=== PATIENT | male | born 1955 | race Caucasian/White ===

== ENCOUNTER 2017-08-17 18:22 | Observation (INO) | payer OTHER ==
[2017-08-18 00:10] LABS: ADD MAN DIFF? NO
[2017-08-18 00:12] LABS: BASOPHIL # 0.1 10^3/ul (0.0-0.1); BASOPHILS % 0.5 % (0.0-2.0); EOSINOPHILS % 0.3 % (0.0-7.0); HEMATOCRIT 43.6 % (42.0-52.0); HEMOGLOBIN 14.9 g/dl (14.0-18.0); LYMPHOCYTES # 3.3 10^3/ul (0.8-2.9); LYMPHOCYTES % 33.3 % (15.0-51.0); MEAN CORPUSCULAR HGB CONC 34.2 g/dl (32.0-37.0); MEAN CORPUSCULAR VOLUME 90.6 fl (82.0-101.0); MEAN PLATELET VOLUME 9.3 fl (7.4-10.4); MONOCYTE # 0.7 10^3/ul (0.3-0.9); MONOCYTES % 7.2 % (0.0-11.0); NEUTROPHIL # 5.8 10^3/ul (1.6-7.5); NEUTROPHILS % 58.5 % (39.0-77.0); PLATELET COUNT 293 10^3/UL (140-415); RED BLOOD COUNT 4.81 10^6/ul (4.70-6.10)
[2017-08-18 00:12] LABS: WHITE BLOOD COUNT 9.9 10^3/ul (4.8-10.8)
[2017-08-18 00:33] LABS: ALANINE AMINOTRANSFERASE 52 IU/L (13-69); ALBUMIN 4.5 g/dl (3.3-4.9); ALBUMIN/GLOBULIN RATIO 1.15; ALKALINE PHOSPHATASE 97 IU/L (42-121); ANION GAP 15 (8-16); ASPARTATE AMINO TRANSFERASE 41 IU/L (15-46); BILIRUBIN,INDIRECT 0.3 mg/dl (0-1.1); BILIRUBIN,TOTAL 0.3 mg/dl (0.2-1.3); BLOOD UREA NITROGEN 10 mg/dl (7-20); CALCIUM 9.5 mg/dl (8.4-10.2); CARBON DIOXIDE 28 mmol/L (21-31); CHLORIDE 100 mmol/L (97-110); CREATININE 0.72 mg/dl (0.61-1.24); GLUCOSE 129 mg/dl (70-220); SODIUM 139 mmol/L (135-144); TOTAL PROTEIN 8.4 g/dl (6.1-8.1)
[2017-08-18 00:45] LABS: B-TYPE NATRIURETIC PEPTIDE 68 PG/ML (0-125); TROPONIN-I 0.012 ng/ml (0.00-0.12)
[2017-08-18] MEDS ORDERED: LORAZEPAM 2 MG INJ IV (03:30)
[2017-08-18] MEDS ORDERED: NA PHOSPHATE/BIPHOS 133 ML ENEMA PR (03:30)
[2017-08-18] MEDS ORDERED: ACETAMINOPHEN 325 MG TAB PO (03:30)
[2017-08-18] MEDS ORDERED: hydrALAzine 20 MG INJ IV (03:30)
[2017-08-18] MEDS ORDERED: DOCUSATE SODIUM 100 MG CAP PO (03:30)
[2017-08-18] MEDS ORDERED: NITROGLYCERIN (SL) 0.4 MG TAB SL (03:30)
[2017-08-18] MEDS ORDERED: NACL 0.9% 3 ML SYG IV (03:30)
[2017-08-18] MEDS ORDERED: ALBUTEROL/IPRATROPIUM (NEB) 3 ML AMP HHN (03:30)
[2017-08-18] MEDS ORDERED: HYDROCODONE/APAP (5/325) TAB PO (03:30)
[2017-08-18] MEDS ORDERED: MAGNESIUM HYDROXIDE 30ML CUP PO (03:30)
[2017-08-18] MEDS: SOD CHLORIDE 0.45% 1,000 ML IV ×3 (03:55→17:54)
[2017-08-18] MEDS: morphine 2 MG INJ IV (04:02)
[2017-08-18] MEDS: ONDANSETRON 4 MG INJ IV (04:02)
[2017-08-18 07:11] LABS: CREATINE KINASE 55 IU/L (23-200)
[2017-08-18 07:24] LABS: CK INDEX 1.5
[2017-08-18 07:31] LABS: TROPONIN-I < 0.012 ng/ml (0.00-0.12)
[2017-08-18 07:33] LABS: FREE T4 (FREE THYROXINE) 1.03 ng/dl (0.64-1.79)
[2017-08-18] MEDS: FAMOTIDINE 20 MG TAB PO ×2 (09:41→20:33)
[2017-08-18] MEDS: ASPIRIN (EC) 325 MG TAB PO (09:41)
[2017-08-18] MEDS: NEOMYC/POLYMYX/DEXAM 3.5GM OPH OINT RIGHT EYE ×4 (09:43→20:33)
[2017-08-18] MEDS: HEPARIN 5,000 UNIT/0.5 ML VIAL SC ×2 (09:43→20:32)
[2017-08-18] MEDS: PREDNISOLONE ACET 1% 5 ML OPH RIGHT EYE ×4 (09:43→20:33)
[2017-08-18 10:42] LABS: CREATINE KINASE 58 IU/L (23-200)
[2017-08-18 10:55] LABS: CK INDEX 1.4
[2017-08-18 10:56] LABS: CK-MB 0.81 ng/ml (0.0-2.4); TROPONIN-I < 0.012 ng/ml (0.00-0.12)
[2017-08-19 01:58] LABS: TROPONIN-I < 0.012 ng/ml (0.00-0.12)
[2017-08-19 04:41] LABS: ADD MAN DIFF? NO
[2017-08-19 04:42] LABS: BASOPHIL # 0.1 10^3/ul (0.0-0.1); BASOPHILS % 0.6 % (0.0-2.0); EOSINOPHILS # 0.1 10^3/ul (0.0-0.5); EOSINOPHILS % 0.9 % (0.0-7.0); HEMATOCRIT 43.8 % (42.0-52.0); HEMOGLOBIN 15.1 g/dl (14.0-18.0); LYMPHOCYTES # 3.8 10^3/ul (0.8-2.9); LYMPHOCYTES % 42.8 % (15.0-51.0); MEAN CORPUSCULAR HEMOGLOBIN 31.3 pg (29.0-33.0); MEAN CORPUSCULAR HGB CONC 34.5 g/dl (32.0-37.0); MEAN CORPUSCULAR VOLUME 90.7 fl (82.0-101.0); MEAN PLATELET VOLUME 9.2 fl (7.4-10.4); MONOCYTE # 0.7 10^3/ul (0.3-0.9); MONOCYTES % 7.8 % (0.0-11.0); NEUTROPHIL # 4.3 10^3/ul (1.6-7.5); NEUTROPHILS % 47.7 % (39.0-77.0); PLATELET COUNT 305 10^3/UL (140-415); RED BLOOD COUNT 4.83 10^6/ul (4.70-6.10)
[2017-08-19 05:08] LABS: ANION GAP 17 (8-16); BLOOD UREA NITROGEN 15 mg/dl (7-20); CALCIUM 8.8 mg/dl (8.4-10.2); CARBON DIOXIDE 26 mmol/L (21-31); CHLORIDE 103 mmol/L (97-110); CREATININE 0.82 mg/dl (0.61-1.24); GLUCOSE 119 mg/dl (70-220); MAGNESIUM 2.3 mg/dl (1.7-2.5); PHOSPHORUS 4.9 mg/dl (2.5-4.9); POTASSIUM 4.3 mmol/L (3.5-5.1); SODIUM 142 mmol/L (135-144)
[2017-08-19 05:21] LABS: CHOLESTEROL 275 mg/dl (100-200)
[2017-08-19 05:21] LABS: CHOL/HDL RATIO 5.8 RATIO; HDL CHOLESTEROL 47 mg/dl (30-78); LDL CHOLESTEROL,CALCULATED 180 mg/dl; TRIGLYCERIDES 239 mg/dl (0-149)
[2017-08-19 07:42] LABS: TROPONIN-I < 0.012 ng/ml (0.00-0.12)
[2017-08-19] MEDS: FAMOTIDINE 20 MG TAB PO (09:09)
[2017-08-19] MEDS: ASPIRIN (EC) 325 MG TAB PO (09:09)
[2017-08-19] MEDS: NEOMYC/POLYMYX/DEXAM 3.5GM OPH OINT RIGHT EYE (09:09)
[2017-08-19] MEDS: PREDNISOLONE ACET 1% 5 ML OPH RIGHT EYE (09:10)
[2017-08-19] MEDS: HEPARIN 5,000 UNIT/0.5 ML VIAL SC (09:15)
[2017-08-19] MEDS: SOD CHLORIDE 0.45% 1,000 ML IV (11:00)
== END 2017-08-19 13:00 | disposition home or self-care (01) ==
LOC: E/R 18:22 → MS3 08-18 02:43
DX: R07.89 Other chest pain (principal); I10 Essential (primary) hypertension
CPT/HCPCS: 71045; 80048; 80053; 80061; 82550; 82553; 83036; 83735; 83880; 84100; 84439; 84443; 84484; 85025; 93005; 93306; 96372; 96374; 96375; 99285-25